=== PATIENT | male | born 1970 | race Caucasian/White ===

== ENCOUNTER 2019-11-06 17:53 | Outpatient (CLI) | payer OTHER, SELFPAY ==
--- NOTE | 2019-11-06 18:15 | USCV_ITS ---
Mo Fields Age: 49 Gender: M : 1970 Exam Date: 11/06/2019 18:21 Ordering Phys: HECTOR Rodriguez APRN Technologist: Rabia Manning Exam Location: [facility] – [place]_ Indication: RIGHT LEG PAIN HISTORY: Lower extremity pain. PROCEDURES: Venous duplex imaging was performed in bilateral lower extremities. The following venous structures were evaluated: common femoral vein, profunda vein, proximal portion of the greater saphenous vein, superficial femoral vein, and the popliteal vein. In addition, the posterior tibial and peroneal trunk were evaluated. Serial compression, augmentation maneuvers, and spectral Doppler flow evaluation were performed. FINDINGS: No evidence of DVT seen in any vessel visualized at this time. There is a large fluid structure located in the popliteal fossa with debris. this correlates with large area of bruising on the back of the leg. ? hematoma CONCLUSIONS No evidence of DVT in the above-mentioned identifiable veins. The hypoechoic area in the popliteal region, suggest fluid collection-hematoma versus ruptured Viera's cyst Dr Carlos Hatch MD FAC (Electronically Signed) Final Date: 07 November 2019 17:35 S
== END 2019-11-06 17:54 | disposition home or self-care (01) ==
LOC: RAD 17:54
PROVIDERS: Family Provider Nurse Practitioner; PCP Nurse Practitioner; Visit Provider Nurse Practitioner Family
DX: I82.409 Acute embolism and thrombosis of unspecified deep veins of unspecified lower extremity (principal); Z86.718 Personal history of other venous thrombosis and embolism; M79.604 Pain in right leg
CPT/HCPCS: 93970

== ENCOUNTER 2019-11-17 11:42 | Outpatient (CLI) | payer OTHER, SELFPAY ==
--- NOTE | 2019-11-17 | USCV_ITS ---
DiamondMo flores Age: 49 Gender: M : 1970 Exam Date: 11/17/2019 12:21 Ordering Phys: NOT ON FILE, DOCTOR XX Technologist: Felipe Hewitt Exam Location: [facility] – [place]_ Indication: RT LEG SWELLING HISTORY: Lower extremity edema. PROCEDURES: Venous duplex imaging was performed in only the right lower extremity. The following venous structures were evaluated: common femoral vein, profunda vein, proximal portion of the greater saphenous vein, superficial femoral vein, and the popliteal vein. In addition, the posterior tibial and peroneal trunk were evaluated. Serial compression, augmentation maneuvers, and spectral Doppler flow evaluation were performed. FINDINGS: Normal 2-D Doppler and augmentation and compressibility throughout the lower extremity venous structures. Additional imaging through the proximal calf veins also reveals no thrombus. Limited evaluation of the greater saphenous vein is patent with no thrombus.. Complex cystic mass with low level echos and no vascularity measuring 4.9 x 2.0 cm in the right popliteal fossa. CONCLUSIONS No DVT right lower extremity. Right popliteal fossa Viera's cyst. Dr. Vivian Burkett DO (Electronically Signed) Final Date: 17 Nov 2019 13:52 S
== END 2019-11-17 11:43 | disposition home or self-care (01) ==
LOC: RAD 11:45
PROVIDERS: Family Provider Nurse Practitioner; PCP Nurse Practitioner
DX: R60.9 Edema, unspecified (principal); M71.21 Synovial cyst of popliteal space [Baker], right knee
CPT/HCPCS: 93971

== ENCOUNTER 2019-11-21 12:05 | Outpatient (RCR) | payer OTHER, SELFPAY | END 2019-12-17 23:59 | disposition home or self-care (01) | LOC: SPT 12:05 | PROVIDERS: Family Provider Nurse Practitioner; Referring Provider Nurse Practitioner Family; Visit Provider Nurse Practitioner Family | DX: S70.11XD Contusion of right thigh, subsequent encounter (principal); X58.XXXD Exposure to other specified factors, subsequent encounter | CPT/HCPCS: 97140; 97161 ==

== ENCOUNTER 2021-02-03 06:00 | Outpatient (RCR) | payer OTHER, SELFPAY | END 2021-02-15 23:59 | disposition home or self-care (01) | LOC: WPT 06:00 | PROVIDERS: PCP Nurse Practitioner Family; Referring Provider Neuromusculoskeletal Medicine, Sports Medicine; Visit Provider Neuromusculoskeletal Medicine, Sports Medicine | DX: M25.562 Pain in left knee (principal); M17.0 Bilateral primary osteoarthritis of knee | CPT/HCPCS: 97110; 97161 ==

== ENCOUNTER 2021-02-16 06:00 | Outpatient (RCR) | payer OTHER, SELFPAY | END 2021-03-18 23:59 | disposition home or self-care (01) | LOC: WPT 06:00 | PROVIDERS: PCP Nurse Practitioner Family; Referring Provider Neuromusculoskeletal Medicine, Sports Medicine; Visit Provider Neuromusculoskeletal Medicine, Sports Medicine | DX: M25.562 Pain in left knee (principal) | CPT/HCPCS: 97110 ==